=== PATIENT | male | born 1970 | race Caucasian/White ===

== ENCOUNTER 2022-03-02 16:09 | Observation (INO) | payer BC ==
[2022-03-02 16:35] VITALS: BMI 28.3
[2022-03-02] MEDS ORDERED: diazePAM CARPU-JECT 10 MG/2 ML DISP.SYRIN IVPUSH ONE ×2 (17:13→18:32)
[2022-03-02] MEDS ORDERED: diazePAM CARPU-JECT 10 MG/2 ML DISP.SYRIN ONE ×2 (17:34→18:38)
[2022-03-02 17:59] LABS: BASO % 0.5 % (0-2.0); EOS % 0.6 % (0-4.5); HEMATOCRIT 40.9 % (35.4-49); HEMOGLOBIN 14.3 GM/dL (11.7-16.9); LYMPH % 12.1 % (8-40); MCH 33.2 pg (25.7-33.7); MCHC 34.9 g/dl (32.0-35.9); MEAN PLT VOLUME 7.8 fl (7.5-11.1); MONO % 7.5 % (3.8-10.2); NEUT % 79.3 % (42.8-82.8); PLATELET COUNT 120 10^3/uL (134-434); RDW 13.6 % (11.9-15.9); WHITE BLOOD COUNT 7.5 K/mm3 (4.0-10.0)
[2022-03-02 18:18] LABS: ALBUMIN 3.9 g/dl (3.4-5.0); BLOOD UREA NITROGEN 16.9 mg/dL (7-18); CALCIUM 8.6 mg/dL (8.5-10.1)
[2022-03-02 18:21] LABS: CREATININE 0.7 mg/dL (0.55-1.3)
[2022-03-02 18:23] LABS: BILIRUBIN,TOTAL 2.2 mg/dL (0.2-1); TOT PROT 7.9 g/dl (6.4-8.2)
[2022-03-02] MEDS ORDERED: SODIUM CHLORIDE 1,000 ML IV STA (19:20)
[2022-03-02] MEDS ORDERED: FOLIC ACID 1 MG TABLET (FP) PO ONE (19:21)
[2022-03-02] MEDS ORDERED: THIAMINE HCL 200 MG/2 ML VIAL IVPB ONE (19:21)
[2022-03-02] MEDS ORDERED: FOLIC ACID INJECTION - 1 MG, THIAMINE HCL 100 MG, MULTIVIT INJECTION ADULT 10 ML in SOD... IVPB ONE (22:06)
[2022-03-02] MEDS ORDERED: LORazepam 1 MG TABLET PO PRN (22:15)
[2022-03-02] MEDS ORDERED: LORazepam 2 MG TABLET PO ONE (22:15)
[2022-03-02] MEDS ORDERED: LORazepam 1 MG TABLET PO ONE (22:30)
[2022-03-02] MEDS ORDERED: FOLIC ACID 1 MG TABLET (FP) ONE (23:42)
[2022-03-02] MEDS ORDERED: THIAMINE HCL 200 MG/2 ML VIAL ONE (23:42)
[2022-03-02] MEDS ORDERED: LORazepam 1 MG TABLET ONE (23:43)
[2022-03-03] MEDS: DEXTROSE 5%-NORMAL SALINE 1,000 ML IV SCH ×2 (03:24→22:30)
[2022-03-03] MEDS: LORazepam 2 MG TABLET PO SCH ×3 (04:06→06:07)
[2022-03-03] MEDS ORDERED: LORazepam 1 MG TABLET ONE (04:12)
[2022-03-03] MEDS: LORazepam 1 MG TABLET PO SCH ×4 (06:05→22:05)
[2022-03-03 08:18] LABS: BASO % 0.5 % (0-2.0); EOS % 2.6 % (0-4.5); HEMATOCRIT 36.7 % (35.4-49); HEMOGLOBIN 12.8 GM/dL (11.7-16.9); LYMPH % 12.8 % (8-40); MCH 33.1 pg (25.7-33.7); MCHC 34.9 g/dl (32.0-35.9); MEAN CELL VOLUME 95.1 fl (80-96); MEAN PLT VOLUME 8.4 fl (7.5-11.1); NEUT % 74.1 % (42.8-82.8); PLATELET COUNT 85 10^3/uL (134-434); RBC 3.86 M/mm3 (4.00-5.60); RDW 13.5 % (11.9-15.9); WHITE BLOOD COUNT 4.6 K/mm3 (4.0-10.0)
[2022-03-03 08:31] LABS: CALCIUM 7.9 mg/dL (8.5-10.1)
[2022-03-03 08:32] LABS: ALBUMIN 3.2 g/dl (3.4-5.0); BLOOD UREA NITROGEN 11.6 mg/dL (7-18); MAGNESIUM 1.8 mg/dL (1.8-2.4)
[2022-03-03 08:35] LABS: CREATININE 0.7 mg/dL (0.55-1.3); PHOSPHOROUS 1.6 mg/dL (2.5-4.9)
[2022-03-03 08:37] LABS: BILIRUBIN,TOTAL 2.8 mg/dL (0.2-1); TOT PROT 6.4 g/dl (6.4-8.2)
[2022-03-03] MEDS ORDERED: NAPH,MB-DB/K PH,MBDB POWDER PACKET PO ONE (11:02)
[2022-03-03] MEDS: FOLIC ACID 1 MG TABLET (FP) PO SCH (11:03)
[2022-03-03] MEDS: THIAMINE HCL 100 MG TABLET (FP) PO SCH (11:03)
[2022-03-03] MEDS: ENOXAPARIN NA (PORCINE) 40 MG/0.4 ML DISP.SYRIN SQ SCH (11:04)
[2022-03-03 13:55] LABS: BILIRUBIN,DIRECT 1.2 mg/dL (0.0-0.2)
[2022-03-04] MEDS ORDERED: LORazepam 0.5 MG TABLET PO PRN
[2022-03-04] MEDS: LORazepam 0.5 MG TABLET PO SCH ×4 (05:40→22:41)
[2022-03-04 09:31] LABS: INR 1.06 (0.83-1.09); PROTHROMBIN TIME (PATIENT) 12.2 SEC (9.7-13.0)
[2022-03-04] MEDS: ENOXAPARIN NA (PORCINE) 40 MG/0.4 ML DISP.SYRIN SQ SCH (09:37)
[2022-03-04] MEDS: THIAMINE HCL 100 MG TABLET (FP) PO SCH (09:37)
[2022-03-04] MEDS: FOLIC ACID 1 MG TABLET (FP) PO SCH (09:37)
[2022-03-04 09:38] LABS: BASO % 0.5 % (0-2.0); EOS % 4.8 % (0-4.5); HEMATOCRIT 37.2 % (35.4-49); HEMOGLOBIN 13.2 GM/dL (11.7-16.9); LYMPH % 20.1 % (8-40); MCH 33.3 pg (25.7-33.7); MCHC 35.6 g/dl (32.0-35.9); MEAN CELL VOLUME 93.6 fl (80-96); MEAN PLT VOLUME 8.9 fl (7.5-11.1); MONO % 7.7 % (3.8-10.2); NEUT % 66.9 % (42.8-82.8); PLATELET COUNT 88 10^3/uL (134-434); RBC 3.98 M/mm3 (4.00-5.60); RDW 13.7 % (11.9-15.9); WHITE BLOOD COUNT 4.2 K/mm3 (4.0-10.0)
[2022-03-04] MEDS: ARTIFICIAL TEARS (POLYVINYL ALCOHOL) OPTH DROPS OU PRN ×2 (17:14→22:41)
[2022-03-04 21:17] LABS: HEMATOCRIT 38.9 % (35.4-49); HEMOGLOBIN 13.3 GM/dL (11.7-16.9); MCH 32.3 pg (25.7-33.7); MCHC 34.1 g/dl (32.0-35.9); MEAN CELL VOLUME 94.8 fl (80-96); MEAN PLT VOLUME 9.5 fl (7.5-11.1); PLATELET COUNT 107 10^3/uL (134-434); RBC 4.11 M/mm3 (4.00-5.60); RDW 13.3 % (11.9-15.9); WHITE BLOOD COUNT 6.5 K/mm3 (4.0-10.0)
[2022-03-04 21:51] LABS: MAGNESIUM 1.3 mg/dL (1.8-2.4)
[2022-03-04 21:55] LABS: PHOSPHOROUS 1.7 mg/dL (2.5-4.9)
[2022-03-04 21:56] LABS: BILIRUBIN,DIRECT 1.2 mg/dL (0.0-0.2)
[2022-03-05] MEDS ORDERED: MAGNESIUM SULF 50% (8.12 MEQ/2 ML-1 GM VIAL) IVPB ONE (04:49)
[2022-03-05] MEDS ORDERED: POTASSIUM CHLORIDE ORAL LIQUID 20 MEQ/15 ML PO ONE (04:50)
[2022-03-05] MEDS ORDERED: LORazepam 0.5 MG TABLET PO ONE (05:00)
[2022-03-05] MEDS: KCL 10 MEQ IVPB 10 MEQ/100 ML INFUS.BAG IVPB SCH ×3 (05:56→08:45)
[2022-03-05] MEDS ORDERED: POTASSIUM PHOSPHATE 30 MM in SODIUM CHLORIDE 500 ML IVPB ONE (06:00)
[2022-03-05 09:28] LABS: ALBUMIN 3.5 g/dl (3.4-5.0); BLOOD UREA NITROGEN 5.3 mg/dL (7-18)
[2022-03-05] MEDS: FOLIC ACID 1 MG TABLET (FP) PO SCH (09:30)
[2022-03-05] MEDS: ENOXAPARIN NA (PORCINE) 40 MG/0.4 ML DISP.SYRIN SQ SCH ×2 (09:30→09:41)
[2022-03-05] MEDS: THIAMINE HCL 100 MG TABLET (FP) PO SCH (09:30)
[2022-03-05 09:31] LABS: CREATININE 0.7 mg/dL (0.55-1.3)
[2022-03-05 09:33] LABS: BILIRUBIN,TOTAL 1.9 mg/dL (0.2-1); TOT PROT 7.1 g/dl (6.4-8.2)
[2022-03-05 09:34] LABS: CALCIUM 9.1 mg/dL (8.5-10.1)
[2022-03-05 14:33] LABS: HEMATOCRIT 36.7 % (35.4-49); HEMOGLOBIN 12.7 GM/dL (11.7-16.9); MCH 32.9 pg (25.7-33.7); MCHC 34.7 g/dl (32.0-35.9); MEAN PLT VOLUME 9.3 fl (7.5-11.1); PLATELET COUNT 125 10^3/uL (134-434); RBC 3.87 M/mm3 (4.00-5.60); RDW 13.5 % (11.9-15.9)
[2022-03-05 14:39] LABS: MAGNESIUM 1.8 mg/dL (1.8-2.4)
[2022-03-05 14:43] LABS: PHOSPHOROUS 2.9 mg/dL (2.5-4.9)
[2022-03-06 09:23] LABS: HEMATOCRIT 38.5 % (35.4-49); MCH 32.1 pg (25.7-33.7); MCHC 33.9 g/dl (32.0-35.9); MEAN CELL VOLUME 94.9 fl (80-96); MEAN PLT VOLUME 8.7 fl (7.5-11.1); PLATELET COUNT 160 10^3/uL (134-434); RBC 4.05 M/mm3 (4.00-5.60); RDW 13.5 % (11.9-15.9); WHITE BLOOD COUNT 5.3 K/mm3 (4.0-10.0)
[2022-03-06 09:45] LABS: BLOOD UREA NITROGEN 6.5 mg/dL (7-18); CALCIUM 8.8 mg/dL (8.5-10.1)
[2022-03-06 09:46] LABS: ALBUMIN 3.3 g/dl (3.4-5.0); MAGNESIUM 1.7 mg/dL (1.8-2.4)
[2022-03-06 09:49] LABS: CREATININE 0.6 mg/dL (0.55-1.3)
[2022-03-06 09:50] LABS: BILIRUBIN,TOTAL 1.2 mg/dL (0.2-1); TOT PROT 6.6 g/dl (6.4-8.2)
[2022-03-06] MEDS: FOLIC ACID 1 MG TABLET (FP) PO SCH (10:17)
[2022-03-06] MEDS: THIAMINE HCL 100 MG TABLET (FP) PO SCH (10:17)
[2022-03-06] MEDS: ENOXAPARIN NA (PORCINE) 40 MG/0.4 ML DISP.SYRIN SQ SCH (10:17)
[2022-03-06] MEDS: ARTIFICIAL TEARS (POLYVINYL ALCOHOL) OPTH DROPS OU PRN (10:18)
[2022-03-06] MEDS ORDERED: MAGNESIUM OXIDE 400 MG TABLET (FP) PO ONE (16:15)
[2022-03-07 08:32] LABS: HEMATOCRIT 38.5 % (35.4-49); HEMOGLOBIN 13.1 GM/dL (11.7-16.9); MCH 32.6 pg (25.7-33.7); MCHC 33.9 g/dl (32.0-35.9); MEAN CELL VOLUME 96.3 fl (80-96); PLATELET COUNT 192 10^3/uL (134-434); RDW 13.9 % (11.9-15.9); WHITE BLOOD COUNT 5.5 K/mm3 (4.0-10.0)
[2022-03-07 09:02] LABS: ALBUMIN 3.3 g/dl (3.4-5.0); BLOOD UREA NITROGEN 8.2 mg/dL (7-18)
[2022-03-07 09:05] LABS: CREATININE 0.6 mg/dL (0.55-1.3)
[2022-03-07 09:06] LABS: BILIRUBIN,TOTAL 1.2 mg/dL (0.2-1)
[2022-03-07 09:07] LABS: TOT PROT 6.6 g/dl (6.4-8.2)
[2022-03-07] MEDS ORDERED: POTASSIUM CHLORIDE TABS 20 MEQ TABLET.ER (FP) PO ONE (09:13)
[2022-03-07] MEDS: FOLIC ACID 1 MG TABLET (FP) PO SCH (09:24)
[2022-03-07] MEDS: THIAMINE HCL 100 MG TABLET (FP) PO SCH (09:24)
[2022-03-07] MEDS: ENOXAPARIN NA (PORCINE) 40 MG/0.4 ML DISP.SYRIN SQ SCH (09:24)
[2022-03-08 06:05] VITALS: BP 123/76; PULSE 75; RESP 17; TEMP 98.2
== END 2022-03-08 08:57 | disposition home or self-care (01) ==
LOC: JER 16:09 → INTOOBSV 18:38 → JERBED 18:38 → UNDOADMOB 18:38 → JERBED 03-03 10:30 → J7W 03-03 10:30 → JERBED 03-03 16:32 → J7W 03-07 20:20
PROVIDERS: ADMIT Internal Medicine; ATTEND Internal Medicine
PROC: 3E033GC Introduction of Other Therapeutic Substance into Peripheral Vein, Percutaneous Approach (ICD-10-PCS; principal; 2022-03-03)
PROC: 3E033NZ Introduction of Analgesics, Hypnotics, Sedatives into Peripheral Vein, Percutaneous Approach (ICD-10-PCS; 2022-03-03)
PROC: 3E0337Z Introduction of Electrolytic and Water Balance Substance into Peripheral Vein, Percutaneous Approach (ICD-10-PCS; 2022-03-03)
DX: F10.139 Alcohol abuse with withdrawal, unspecified (principal); F10.180 Alcohol abuse with alcohol-induced anxiety disorder; R53.83 Other fatigue; R74.01 Elevation of levels of liver transaminase levels
CPT/HCPCS: 36415; 71045-TC-FY; 76705-TC; 80053; 82248; 83690; 83735; 84100; 85025; 85027; 85610; 86707; 86708; 86803; 87340; 87350; 87517; 93005; 93010; 99285-25; C9803-CS; G0378; U0003; U0005